=== PATIENT | male | born 1995 | race Caucasian/White ===

== ENCOUNTER 2017-01-16 17:00 | Emergency (ER) | payer BC | END 2017-01-16 23:28 | disposition home or self-care (01) | LOC: ER 17:00 | DX: R11.2 Nausea with vomiting, unspecified (principal); F17.220 Nicotine dependence, chewing tobacco, uncomplicated; F17.210 Nicotine dependence, cigarettes, uncomplicated | CPT/HCPCS: 36415; 96374 ==